=== PATIENT | male | born 1965 | race Two or more races ===

== ENCOUNTER → 2020-05-25 | Outpatient (CLI) | payer OTHER ==
--- NOTE | 2020-05-25 15:20 | RAD ---
PQRS Compliance Statement: One or more of the following individualized dose reduction techniques were utilized for this examinat ion: 1. Automated exposure control 2. Adjustment of the mA and/or kV according to patient size 3. Use of iterative reconstruction technique CT abdomen/pelvis without contrast 05/25/2020 10:29 AM INDICATION: Abdominal pain COMPARISON: None available TECHNIQUE: Multiple axial CT images of the abdomen and pelvis were obtained without intravenous contr ast. Coronal and sagittal reformats are provided. FINDINGS: Lung bases are clear. Heart size is within normal limits. Anterior pericardiophrenic lymph nodes andrez ure up to 5 mm by short axis. Lack of intravenous contrast since evaluation of the solid abdominal vi scera. 6 mm hypodensity in the right hepatic lobe is too small to characterize, however statistically favored represent benign etiology such as a simple cyst or hemangioma. Spleen, adrenal glands, pancr eas and gallbladder are normal in appearance. Abdominal aorta is normal in course and caliber. No pat hologically enlarged lymph nodes identified in the abdomen and pelvis. There is no free fluid or free intraperitoneal air. There is mild colonic diverticulosis. Appendix is normal in appearance. No cora l obstruction or inflammation. There are at least 4 calculi in the left kidney measuring up to 6 mm. There are at least 4 calculi in the right kidney measuring up to 7.5 mm in the interpolar right kidney. No hydronephrosis. No calcul i identified within the ureters or urinary bladder. Prostate and seminal vesicles are normal in appea titus. No suspicious osseous abnormality is identified. IMPRESSION: Bilateral nonobstructing renal calculi measuring up to 6 mm in the left and 7.5 mm in the right witho ut associated hydronephrosis. 6 mm hypodensity in the right hepatic lobe is too small to characterize, statistically favored repres ent simple cyst or hemangioma in the absence of underlying malignancy. Mild colonic diverticulosis. Electronically signed by: Marleny Dominguez MD (05/25/2020 3:17 PM) [id number]
== END ==
LOC: CT 10:15
PROVIDERS: ATTEND Specialist
DX: N20.0 Calculus of kidney (principal); K57.30 Diverticulosis of large intestine without perforation or abscess without bleeding
CPT/HCPCS: 74176